=== PATIENT | male | born 1980 | race Caucasian/White ===

== ENCOUNTER → 2018-10-31 10:29 | Outpatient (CLI) | payer BC, SELFPAY ==
[2018-10-31 10:05] VITALS: BMI 30.2
--- NOTE | 2018-10-31 10:33 | RAD_ITS ---
STUDY: X-RAY - LEFT FOOT CLINICAL: Male, 38 years old. Lateral foot pain. TECHNIQUE: 3 view(s) of the foot. COMPARISON: Prior comparison studies are not available for review at this time. FINDINGS: There is a plantar calcaneal spur. Tarsal bones have a grossly normal appearance. Intertarsal articulations are within normal limits. Normal metatarsi. Normal metatarsophalangeal joint of the great toe. Normal tibial and fibular sesamoid bones. Normal interphalangeal joint of the great toe. Normal phalanges of the great toe. Normal second through fifth metatarsophalangeal joints. Normal interphalangeal joints and phalanges of the lesser toes. There is soft tissue swelling. RAD/Foot min 3 Views IMPRESSION: 1. Calcaneal spur. 2. Soft tissue swelling. Electronically Signed: Leilani Vance MD at 11:06 EST , Service support ,
== END ==
PROVIDERS: Family Provider Family Medicine; PCP Family Medicine; Referring Provider Physician Assistant Surgical; Visit Provider Physician Assistant Surgical
DX: S96.912A Strain of unspecified muscle and tendon at ankle and foot level, left foot, initial encounter (principal); M77.32 Calcaneal spur, left foot
CPT/HCPCS: 73630

== ENCOUNTER 2020-05-23 21:06 | Emergency (ER) | payer BC, SELFPAY ==
[2019-09-26 12:43] VITALS: BMI 30.2
[2020-05-23 21:10] VITALS: BP 142/87; PULSE 100; RESP 24; TEMP 37.5; O2SAT 95; BMI 36.2
--- NOTE | 2020-05-23 21:37 | RAD_ITS ---
STUDY: X-RAY CHEST REASON FOR EXAM: Male, 39 years old. Cough, shortness of breath and fever X1 week. TECHNIQUE: Single AP portable view of the chest. COMPARISON: None. FINDINGS: Mild irregular consolidation is present in the left lower lobe. The interstitium is thickened in the bilateral perihilar regions and the mid to lower lung paez. There is no demonstrated pleural abnormality. Normal size heart. Normal mediastinum and maggy. Normal visualized pulmonary arteries. Normal visualized aortic arch and descending thoracic aorta. Normal visualized thoracic spine. Normal visualized ribs, clavicles, and shoulders. There is no demonstrated abnormality of the visualized soft tissue structures of the upper abdomen. RAD/Chest 1 View (Portable) IMPRESSION: 1. Mild irregular consolidation is present in the left lower lobe. 2. The interstitium is thickened in the bilateral perihilar regions and the mid to lower lung paez Electronically Signed: Golden Lerma MD at 22:40 EDT , Service support ,
--- NOTE | 2020-05-23 21:37 | EKG12_ITS ---
Test Reason : CP Blood Pressure : / mmHG Vent. Rate : 101 BPM Atrial Rate : 101 BPM P-R Int : 150 ms QRS Dur : 074 ms QT Int : 326 ms P-R-T Axes : 022 -07 -03 degrees QTc Int : 422 ms Sinus tachycardia Moderate voltage criteria for LVH, may be normal variant Borderline ECG Confirmed by DEON MCDONALD ([id number]), assignment editor MARISSA CLINTON ([id number]) on 05/27/2020 11:45:29 AM Referred By: Confirmed By:DEON MCDONALD
--- NOTE | 2020-05-23 22:18 | ED.VISSUMM ---
- ER Visit Summary Date of Service: 05/23/20 Chief Complaint: Shortness of breath, cough History of Present Illness: The patient is a 39 M presenting with shortness of breath, cough. This started one week ago. His tested positive for COVID 1 week ago. He developed symptoms the same day she was tested, 1-week ago. He has had fever, chills. He has had mild rhinorrhea. He has shortness of breath and productive cough. He has had mild diarrhea. He has body aches and headache. He has a change in his sense of taste. Physical Examination: Vitals are stable. Temperature 99.5. Alert no acute distress. HEENT exam is unremarkable. Neck is supple. No meningismus Lungs are clear and equal bilaterally. Heart is regular rate and rhythm. Abdomen is soft nontender nondistended. No guarding or rebound Extremities are unremarkable. Skin is warm and dry. No rash No focal neurologic deficit. Remainder of exam is unremarkable. Emergency Department Course and Treatment: Patient was given IV fluids. EKG is sinus tachycardia rate of 101. COVID test was sent. Labs are pending at this time and will be checked out to the oncoming physician. Disposition: pending Impression: Viral illness This note was generated with [employer] dictation software. It may contain incorrect words, spelling, and punctuation that were not noted in review of the chart prior to signing ED Disposition - Plan for ED Patient: Referrals: Barrington Cordova MD [Primary Care Provider] -
[2020-05-23 22:30] VITALS: O2SAT 95
[2020-05-23] MEDS: 0.9% Normal Saline 1,000 ML 1000 ML IV (22:30)
[2020-05-23 22:33] LABS: Absolute Lymphocyte Count 0.62 X10^3/uL (0.83-4.51); Basophil# 0.01 X10^3/uL; Basophil% 0.3 % (0-1); Hematocrit 44.3 % (40-54); Hemoglobin 14.9 g/dL (13.0-16.5); Lymphocyte # 0.62 X10^3/ul (4.0); Lymphocyte % 21.4 % (19-41); Mean Corp Hgb Conc 33.6 g/dL (32-36); Mean Corpuscular Hgb 28.9 pg (27.0-32.0); Mean Corpuscular Volume 85.9 fL (80-94); Monocyte% 10.3 % (0-10); NRBC Flagged by Analyzer 0 % (0-5); Neutrophil # 1.96 X10^3/uL (2.7-7.7); Neutrophil % 67.7 % (47-70); Platelet Count 157 K/mm3 (150-450); RBC Distribution Width CV 12.1 % (11.6-14.6); RBC Distribution Width SD 38.2 fl (35.1-43.9); Red Blood Count 5.16 M/mm3 (4.6-6.2); White Blood Count 2.9 K/mm3 (4.4-11.0)
[2020-05-23 22:50] LABS: Anion Gap 4 (5-15); BUN 20 mg/dL (7-18); BUN/Creat Ratio 17.9 RATIO (10-20); Calcium,Total 8.4 mg/dL (8.5-10.1); Chloride 104 mmol/L (98-107); Creatinine, Serum 1.12 mg/dL (0.70-1.30); EST Glomerular Filtration Rate 77 mL/min (>60); Est Glom Filt Rate - Afr Amer 93 mL/min (>60); Glucose 108 mg/dL (74-106); Potassium 4.2 mmol/L (3.5-5.1); Sodium Level 134 mmol/L (136-145)
[2020-05-23 23:57] VITALS: BP 124/81; PULSE 96; RESP 18; TEMP 37.6; O2SAT 94
--- NOTE | 2020-05-24 00:27 | ED.DEP ---
ED Disposition - Plan for ED Patient: [facility] Diagnosis: COVID-19 Referrals: Barrington Cordova MD [Primary Care Provider] - Additional Instructions: You are diagnosed with COVID. There is a separate instruction sheet due to were given. If you feel worse or you are short of breath or you have any, chest pain or your leg swell please return right away to the emergency department.
[2020-05-24 00:51] VITALS: BP 124/81; PULSE 96; RESP 16; O2SAT 94
== END 2020-05-24 00:58 | disposition short-term general hospital (02) ==
PROVIDERS: Emergency Medicine; Emergency Provider Emergency Medicine; PCP Family Medicine
DX: B34.9 Viral infection, unspecified (principal)
CPT/HCPCS: 71045; 80048; 84484; 85025; 87635; 93005; 94799; 99285; J7030; A4216; U0003

== ENCOUNTER → 2021-02-14 09:42 | Outpatient (CLI) | payer BC, SELFPAY ==
--- NOTE | 2021-02-14 09:52 | ECHOCS_ITS ---
Reason For Study: DYSPNEA Procedure This was a 2D Doppler, Color Flow transthoracic echocardiogram. The study was technically difficult. Contrast injection was performed. Exam performed in department. Left Ventricle Normal LV size. Mild global left ventricular systolic dysfunction. The estimated ejection fraction is 45 %. Transmitral doppler flow suggestive of impaired relaxation of left ventricle. Right Ventricle Normal RV size. Normal systolic function. Atria Normal left atrium. Normal right atrium. No doppler evidence for ASD. Mitral Valve There is no mitral annular calcification. Normal mitral valve. Trivial mitral valve insufficiency. Tricuspid Valve Normal tricuspid valve. Trivial tricuspid valve insufficiency. Right ventricular systolic pressure estimated to be 26 mmHg. Aortic Valve Bicuspid aortic valve. Mild diffuse aortic valve thickening. Mild focal aortic valve calcification. Mild aortic stenosis. Mild-Moderate (1-2+) eccentric aortic valve insufficiency. Pulmonic Valve The pulmonic valve is not well visualized. Great Vessels Mildly dilated aortic root. Pericardium/Pleural No pericardial effusion. Medication 22 gauge I.V. with prn adaptor inserted into right arm. Diluted definity 4ml given slow IV push to enhance endocardial definition. MMode/2D Measurements & Calculations LVIDd: 4.8 cm IVSd: 0.87 cm LVOT diam: 2.4 cm LVIDs: 3.3 cm LVPWd: 0.75 cm RVDd: 2.9 cm FS: 30.0 % LVOT area: 4.6 cm2 Ao root diam: 4.0 cm LAV(MOD-bp): 35.0 ml LVAd ap4: 40.5 cm2 LAV(MOD-bp) Indexed: 16.1 ml/m2 EDV(MOD-sp4): 141.2 ml LAV(MOD-sp2): 40.8 ml EDV(sp4-el): 145.9 ml LAV(MOD-sp4): 29.1 ml LVAs ap4: 23.2 cm2 ESV(MOD-sp4): 57.7 ml ESV(sp4-el): 58.0 ml EF(MOD-sp4): 59.1 % EF(sp4-el): 60.2 % SV(MOD-sp4): 83.5 ml SV(sp4-el): 87.9 ml LA A4 area: 13.2 cm2 LA dimension(2D): 3.5 cm RA A4 area: 10.4 cm2 Time Measurements MV dec time: 0.22 sec Doppler Measurements & Calculations MV E max rudy: 68.4 cm/sec Lat Peak E' Rudy: 10.1 cm/sec Med Peak E' Rudy: 7.0 cm/sec MV A max rudy: 94.4 cm/sec E/E' lat: 6.8 E/E' med: 9.8 MV E/A: 0.72 Ao V2 max: 176.0 cm/sec AI max rudy: 347.8 cm/sec LV V1 max: 73.9 cm/sec Ao max P.4 mmHg AI max P.4 mmHg LV V1 max P.2 mmHg Ao V2 mean: 128.9 cm/sec AI dec slope: 230.7 cm/sec2 LV V1 mean P.3 mmHg Ao mean P.5 mmHg AI P1/2t: 441.7 msec LV V1 mean: 53.5 cm/sec Ao V2 VTI: 34.4 cm LV V1 VTI: 16.3 cm GINA(I,D): 2.2 cm2 GINA(V,D): 1.9 cm2 SV(LVOT): 74.4 ml PA V2 max: 101.5 cm/sec TR max rudy: 241.8 cm/sec TR max P.4 mmHg ECHO/Echo Complete W/ Contrast Interpretation Summary The study was technically difficult. Contrast injection was performed. Mild global left ventricular systolic dysfunction. The estimated ejection fraction is 45 %. Trivial mitral valve insufficiency. Trivial tricuspid valve insufficiency. Bicuspid aortic valve. Mild aortic stenosis. Mild-Moderate (1-2+) eccentric aortic valve insufficiency. Mildly dilated aortic root. Right ventricular systolic pressure estimated to be 26 mmHg. Transmitral doppler flow suggestive of impaired relaxation of left ventricle Ordering Physician: Barrington Cordova Referring Physician: Barrington Cordova Performed By: Erum Correia RDCS
== END ==
PROVIDERS: PCP Family Medicine; Referring Provider Family Medicine; Visit Provider Family Medicine
DX: R06.00 Dyspnea, unspecified (principal)
CPT/HCPCS: 93306; Q9957; A4216; C8929

== ENCOUNTER → 2021-04-02 13:53 | Outpatient (CLI) | payer BC, SELFPAY ==
[2021-04-02 12:57] VITALS: BMI 37.2
--- NOTE | 2021-04-02 14:05 | RAD_ITS ---
STUDY: X-RAY CHEST REASON FOR EXAM: Male, 40 years old. Cmp heart catheterization pending TECHNIQUE: Frontal and lateral views of the chest COMPARISON: 23 May 2020 FINDINGS: The lungs are clear and expanded. There is no demonstrated pleural abnormality. Normal size heart. Normal mediastinum and maggy. Normal visualized pulmonary arteries. Normal visualized aortic arch and descending thoracic aorta. Normal visualized thoracic spine. Normal visualized ribs, clavicles, and shoulders. There is no demonstrated abnormality of the visualized soft tissue structures of the upper abdomen. RAD/Chest PA and Lateral IMPRESSION: Normal x-ray examination of the chest. Electronically Signed: Nikkie Jamison MD at 19:32 EDT Tel , Service support ,
[2021-04-02 14:56] LABS: Absolute Lymphocyte Count 2.47 X10^3/uL (0.83-4.51); Absolute Neutrophil Count 4.2 X10^3/uL (2.0-7.7); Basophil# 0.03 X10^3/uL; Basophil% 0.4 % (0-1); Eosinophils% 2.6 % (0-5); Hematocrit 46.1 % (40-54); Hemoglobin 15.3 g/dL (13.0-16.5); Lymphocyte # 2.47 X10^3/ul (0.83-4.51); Lymphocyte % 32.1 % (19-41); Mean Corp Hgb Conc 33.2 g/dL (32-36); Mean Corpuscular Hgb 28.4 pg (27.0-32.0); Mean Corpuscular Volume 85.7 fL (80-94); Mean Platelet Vol. 9.9 fl (6.2-12.0); Monocyte# 0.75 X10^3/uL; Monocyte% 9.7 % (0-10); NRBC Flagged by Analyzer 0 % (0-5); Neutrophil # 4.24 X10^3/uL (2.7-7.7); Neutrophil % 55.1 % (47-70); Platelet Count 300 K/mm3 (150-450); RBC Distribution Width CV 12.7 % (11.6-14.6); RBC Distribution Width SD 39.2 fl (35.1-43.9); Red Blood Count 5.38 M/mm3 (4.6-6.2); White Blood Count 7.7 K/mm3 (4.4-11.0)
[2021-04-02 15:31] LABS: Anion Gap 4 (5-15); BUN 18 mg/dL (7-18); BUN/Creat Ratio 13.6 RATIO (10-20); Calcium,Total 9.4 mg/dL (8.5-10.1); Chloride 107 mmol/L (98-107); Creatinine, Serum 1.32 mg/dL (0.70-1.30); EST Glomerular Filtration Rate 63 mL/min (>60); Est Glom Filt Rate - Afr Amer 76 mL/min (>60); Glucose 96 mg/dL (74-106); Potassium 4.1 mmol/L (3.5-5.1); Sodium Level 141 mmol/L (136-145)
== END ==
PROVIDERS: PCP Family Medicine; Referring Provider Internal Medicine Cardiovascular Disease; Visit Provider Internal Medicine Cardiovascular Disease
DX: Q23.1 Congenital insufficiency of aortic valve (principal); I42.9 Cardiomyopathy, unspecified; R06.00 Dyspnea, unspecified
CPT/HCPCS: 36415; 71046; 80048; 85025

== ENCOUNTER 2021-04-14 07:27 | Day surgery (SDC) | payer BC, SELFPAY ==
[2021-04-02 12:57] VITALS: BMI 37.2
[2021-04-11 09:00] VITALS: BMI 37.2
--- NOTE | 2021-04-14 09:49 | CL.D_ITS ---
Patient Name: ALEX STEIN Study Date: 04/14/2021 Performing: Mushtaq Marin MD Ht: 69 inches 175 cm : 1980 Wt: 251.7 lbs 114 kg Age: 40 Gender: male BSA: 2.27 PROCEDURE(S) PERFORMED [id number]/LV CLINICAL PROFILE AND INDICATIONS Indications: Valvular Disease Heart Failure: None Stress/Imaging Stress/Image Study Performed: No CAD Presentations: Symptom unlikely to be ischemic. CONCLUSIONS Mild cardiomyopathy present, normal coronary arteries, bicuspid aortic valve Dilated aortic root RECOMMENDATIONS Medical therapy for now, CT scan of the aortic root, referral for evaluation for possible bicuspid ao rtic valve repair DESCRIPTION OF PROCEDURE The patient arrived to the procedure lab. The risks and benefits of the procedure as well as a full d escription of our services here and current unavailability of surgical backup were fully explained to the patient and/or their significant other prior to the catheterization. The Timeout was completed, verifying the correct patient and procedure. The patient's procedural site was prepped and draped in the usual fashion. Local anesthetic was given subcutaneously to right radial region with Lidocaine 2% . Using a modified Seldinger technique, arterial access was obtained via the right radial artery, a 6 Fr sheath was inserted. Left Coronary Artery selective angiography was performed in multiple views u sing a 5 Fr. JL3.5 catheter. Right Coronary Artery selective angiography was then performed in multip le views using a 5 Fr. JR 5 catheter. Left Ventriculography was performed in DIXON projection using a 5 Fr. Pigtail catheter. LV to AO pullback pressures were then recorded.The arterial sheath was pulled and a TR Band was applied for hemostasis, sheath flushed prior to removal, 10cc air insert ed. CORONARY ANGIOGRAPHY DOMINANCE: Right Dominant LEFT HEART ASSESSMENT Left Ventricular Ejection Fraction: by LV Gram 45 % Global Hypokinesis - Mild Cardiomyopathy: Non-ischemic LEFT MAIN: Angiographically normal LEFT ANTERIOR DESCENDING ARTERY: Angiographically normal CIRCUMFLEX ARTERY: Angiographically normal RIGHT CORONARY ARTERY: No significant disease noted VALVE FINDINGS: Bicuspid Aortic Valve AORTIC ROOT: Dilated COMPLICATIONS No Complications PROCEDURE MEDICATIONS Fentanyl 50 mcg IV Versed 1 mg IV Oxygen: 2 L/min via nasal cannula Heparin given IA 04/14/2021 09:17:39 Verapamil 2.5mg, Ntg 100mcgs, 3000 units of Heparin given IA 04/14/2021 09:17:39 SUMMARY OF HEMODYNAMIC DATA Time AIR REST AO 106/78 (91) SA 09:20:47 LV 106/19, 29 09:37:59 LV 110/19, 26 09:38:05 LV 109/22, 29 09:39:02 LV 104/27, 34 09:39:08 LVp 109/21, 31 09:39:14 AOp 113/84 (98) 09:39:19 Signed By Mushtaq Marin MD On 04/14/2021 09:48:36 Mushtaq Marin MD
--- NOTE | 2021-04-14 10:45 | CT_ITS ---
STUDY: CTA CHEST REASON FOR EXAM: Male, 40 years old. Dilated aortic root. RADIATION DOSAGE (If Supplied By Facility): CTDIvol = ( 17.47 ) mGy, DLP = ( 792.88 ) mGycm TECHNIQUE: The examination was performed with the intravenous administration of IV 100mL Isovue-370. Post-processing of the angiographic images was performed, with multiplanar reformation and 3D reconstruction. Individualized dose optimization techniques were used for this CT. COMPARISON: None. FINDINGS: Normal enhancement of the main pulmonary artery and right and left pulmonary arteries. Normal enhancement of the bilateral peripheral pulmonary arteries. There is no demonstrated pulmonary embolism. There is aneurysmal dilatation of the ascending aorta. The transverse diameter of the ascending aorta measures 45.7 mm''s. There is no demonstrated aortic dissection. Normal heart and pericardium. There are visualized mediastinal lymph nodes, which are within normal size limits, and with normal morphology. Normal hilar regions. Normal visualized trachea and bronchi. The lungs are well expanded. Normal pulmonary parenchyma. Normal pleura. Normal chest wall structures. There are degenerative changes of thoracic spine. Fatty infiltration of the liver. CT/CTA Chest W/WO Contrast IMPRESSION: There is dilatation of the aortic root with a transverse dimension of 45.7 mm. Electronically Signed: Alirio Elise MD at 11:02 EDT , Service support ,
== END 2021-04-14 12:05 | disposition home or self-care (01) ==
PROVIDERS: PCP Family Medicine; Referring Provider Internal Medicine Cardiovascular Disease; Visit Provider Internal Medicine Cardiovascular Disease
DX: I42.9 Cardiomyopathy, unspecified (principal); I77.810 Thoracic aortic ectasia; I35.2 Nonrheumatic aortic (valve) stenosis with insufficiency; Z79.82 Long term (current) use of aspirin; Z68.37 Body mass index [BMI] 37.0-37.9, adult; Z79.899 Other long term (current) drug therapy; Z86.16 Personal history of COVID-19
CPT/HCPCS: 71275; 93458; 99152; 99153; J7040; Q9967; C1769; C1894

== ENCOUNTER 2021-10-24 17:19 | Emergency (ER) | payer BC, SELFPAY ==
[2021-10-24 17:19] VITALS: BP 150/95; PULSE 97; RESP 16; TEMP 37.1; O2SAT 97; BMI 35.4
--- NOTE | 2021-10-24 17:59 | EDS_ITS ---
HPI History of Present Illness Chief Complaint: Dental Informant: patient and spouse/S.O. Onset/Context/Timing Onset: Days (3) Context: Gradual Onset Timing: Continuous Quality: throbbing/aching Location: right maxillary bicuspid Current Severity: Severe Maximum Severity: Severe Worsened by: chewing Relieved by: - (nothing) Narrative Narrative: Several days worsening dental pain, tooth #13 as the patient already saw his dentist yesterday because of this, was prescribed clindamycin, has had 2 days worth, 6 doses, but swelling/pain worsening despite this. No fevers or discharge. Swelling left face. No nasal discharge or vision changes. [facility] Medical History Bicuspid aortic valve COVID-19 virus detected (05/2020) Dilated aortic root Hordeolum externum left upper eyelid Non-ischemic cardiomyopathy Nonrheumatic aortic (valve) stenosis with insufficiency Home Medications aspirin 81 mg tablet,delayed release 81 mg PO QDAY #90 tab 04/02/21 [Rx Last Taken Unknown] furosemide 20 mg tablet 20 mg PO DAILY #90 tab 04/02/21 [Rx Last Taken Unknown] lisinopril 2.5 mg tablet 2.5 mg PO DAILY #30 tab 07/11/21 [Rx Last Taken Unknown] carvedilol 6.25 mg tablet 6.25 mg PO BID #180 tab 09/02/21 [Rx Last Taken Unknown] hydrocodone-acetaminophen 1 tab PO Q4H PRN 3 Days #18 tablet 10/24/21 [Rx Last Taken Unknown] Allergy/AdvReac Type Severity Reaction Status Date / Time Penicillins Allergy Mild unknown Verified 10/24/21 17:23 Family History Mother Diabetes Father Diabetes CAD (coronary artery disease), Onset Age: 67 CABG Surgical History History of left heart catheterization (04/14/21) History of removal of cyst Social History Smoking Status: Never smoker alcohol intake: current alcohol intake frequency: holidays/special occasions only ROS ROS ED Constitutional Constitutional ED: Denies chills or fever(s) Eyes Eyes: Denies change in vision or double vision ENT ENT ED: Reports as per HPI and dental pain; Denies loss taste/smell, sinus pain or throat swelling Cardiovascular Cardiovascular: Denies chest pain or palpitations Respiratory/Chest Respiratory/Chest: Denies cough or dyspnea Integumentary Denies abscess or rash Neurologic Neurologic: Denies headache(s), paresthesias or weakness EXAM Physical Exam Const Vital Signs: 10/24/21 17:19 Temperature 98.8 F Temperature Source Temporal Pulse Rate 97 Respiratory Rate 16 Blood Pressure 150/95 H Blood Pressure Mean 113 Pulse Ox 97 Oxygen Delivery Method Room Air Positive well nourished and well developed General Appearance ED: well developed and NAD HEENT HEENT Narrative: Tender tooth #13, with associated supraperiosteal abscess that is pointing in the oral mucosa above the gingiva. Also swelling due to dental abscess in the left maxillary face toward the eye but not including it. Normal periorbital area. No nasal discharge, no external facial erythema. Throat: posterior oropharynx normal Eyes PERRL and EOMs intact bilaterally Neck no lymphadenopathy and supple Resp normal respiratory effort Neuro oriented x3 and CN's II-XII intact bilaterally Sensorium / Orientation: alert Gait (Neuro): normal gait Psych mental status grossly normal and thought process normal Skin no rashes or lesions noted and no wounds MDM MDM MDM Narrative Medical decision making narrative: See the procedure note, we were able to get a small amount of purulent material out. He was given Decadron 12 mg orally, in addition to a [place] and a short prescription for some pain medication, continue clindamycin follow-up with dentist/OMFS. Procedures Other Procedures Procedure(s): Dental abscess aspiration: Topical treatment with topical benzocaine 20% spray, followed by intraoral aspiration with an 18-gauge needle, yielded only a scant amount of blood/purulent material, followed by foul taste in the patient's mouth and saliva, so he was able to manually milk/express some more out and irrigate with ice water. No complications, tolerated well. Discharge Plan Triage Chief Complaint: Dental ED Provider: Lavon Paige Dx/Rx/DC Orders Clinical Impression: Dental abscess Instructions: ED Dental Abscess Prescriptions: New hydrocodone-acetaminophen [hydrocodone-acetaminophen] 1 TABLET tablet 1 tab PO Q4H PRN (Reason: Pain) 3 Days Qty: 18 RF: 0 No Action aspirin [Adult Low Dose Aspirin] 81 mg tablet,delayed release (DR/EC) 81 mg PO QDAY Qty: 90 RF: 3 furosemide [Lasix] 20 mg tablet 20 mg PO DAILY Qty: 90 RF: 3 lisinopril 2.5 mg tablet 2.5 mg PO DAILY Qty: 30 RF: 12 carvedilol 6.25 mg tablet 6.25 mg PO BID Qty: 180 RF: 3 Primary Care Provider: Barrington Cordova Referrals: Barrington Cordova MD [Primary Care Provider] - Dentist,Your [STAFF PHYSICIAN] - As soon as possible (After the weekend) Disposition Disposition: Home, Self Care
[2021-10-24] MEDS: HYDROcodone Bitartrate/Apap 5/325 Tablet PO (18:48)
[2021-10-24] MEDS: dexAMETHasone 4 MG Tablet 12 MG PO (18:48)
== END 2021-10-24 18:52 | disposition home or self-care (01) ==
PROVIDERS: Emergency Provider Emergency Medicine; PCP Family Medicine
DX: K04.7 Periapical abscess without sinus (principal); I42.8 Other cardiomyopathies; Z86.16 Personal history of COVID-19; Z79.82 Long term (current) use of aspirin; Z79.899 Other long term (current) drug therapy
CPT/HCPCS: 99283

== ENCOUNTER → 2022-03-19 | Outpatient (CLI) | payer BC, SELFPAY ==
--- NOTE | 2022-03-19 16:06 | CT_ITS ---
: CTA Chest WO/W Contrast Injection 03/19/2022 6:08 PM REASON FOR EXAM: Male, 41 years old. dilated aortic root TECHNIQUE: The examination was performed with the intravenous administration of IV 100mL Isovue-370 contrast material. Post-processing of the angiographic images was performed, with axial imaging and 3D reconstruction. MIPS images were obtained. Radiation: CTDIvol = [18.6] mGy, DLP = [523.63] mGy-cm Individualized dose optimization techniques were used for this CT. Comparison: Apr 14 2021 10:44am FINDINGS: There is no pneumothorax. There is no demonstrated pleural abnormality. Normal heart and pericardium with no evidence for calcifications of the coronary arteries. Normal mediastinum. Normal hilar regions. Normal pulmonary arteries. Normal aorta arch and descending thoracic aorta. There is aneurysmal dilatation of the ascending aorta. The transverse diameter of the ascending aorta measures (in mm): 47 x 48 mm. There are multi-level degenerative changes of the thoracic spine. Fatty liver. CT/CTA Chest W/WO Contrast IMPRESSION: No demonstrated pulmonary embolism or arterial dissection. There is stable aneurysmal dilatation of the ascending aorta. Fatty liver. Electronically Signed: Gaston Snell MD at 18:12 EDT ,
== END | disposition home or self-care (01) ==
LOC: CT 16:05
PROVIDERS: PCP Family Medicine; Referring Provider Internal Medicine Cardiovascular Disease; Visit Provider Internal Medicine Cardiovascular Disease
DX: I77.810 Thoracic aortic ectasia (principal)
CPT/HCPCS: 71275; Q9967

== ENCOUNTER → 2022-03-31 | Outpatient (CLI) | payer BC, SELFPAY ==
--- NOTE | 2022-03-31 08:48 | ECHOCS_ITS ---
Version 3 Reason For Study: BICUSPID AO Procedure This was a 2D Doppler, Color Flow transthoracic echocardiogram. The study was technically difficult. Exam performed in department. Left Ventricle Normal LV size. Left ventricular systolic function is normal. The estimated ejection fraction is 60 %. No regional wall motion abnormalities noted. Right Ventricle Normal RV size. Normal systolic function. Atria Normal left atrium. Normal right atrium. Mitral Valve Normal mitral valve. Tricuspid Valve Normal tricuspid valve. Mild tricuspid valve insufficiency. Aortic Valve Bicuspid aortic valve. Mild (1+) eccentric aortic valve insufficiency. Pulmonic Valve The pulmonic valve is not well visualized. Great Vessels Mild to moderately dilated aortic root. The pulmonary artery is normal size. Normal inferior vena cava. Pericardium/Pleural No pericardial effusion. Medication 22 gauge I.V. with prn adaptor inserted into right arm. Diluted definity 1ml given slow IV push to enhance endocardial definition. MMode/2D Measurements & Calculations LVIDd: 5.6 cm IVSd: 0.87 cm LVOT diam: 2.5 cm LVIDs: 2.8 cm LVPWd: 0.79 cm FS: 50.0 % LVOT area: 5.1 cm2 Ao root diam: 4.2 cm LVAd ap4: 48.7 cm2 SV(MOD-sp4): 118.4 ml LVLd ap4: 10.4 cm EDV(MOD-sp4): 185.1 ml EDV(sp4-el): 193.1 ml LVAs ap4: 26.7 cm2 LVLs ap4: 8.6 cm ESV(MOD-sp4): 66.6 ml ESV(sp4-el): 70.0 ml EF(MOD-sp4): 64.0 % EF(sp4-el): 63.8 % SV(sp4-el): 123.2 ml LA dimension(2D): 3.9 cm Doppler Measurements & Calculations MV E max rudy: 81.7 cm/sec Lat Peak E' Rudy: 11.4 cm/sec Med Peak E' Rudy: 11.7 cm/sec MV A max rudy: 95.9 cm/sec E/E' lat: 7.2 E/E' med: 7.0 MV E/A: 0.85 Ao V2 max: 208.7 cm/sec AI max rudy: 404.1 cm/sec LV V1 max: 82.9 cm/sec Ao max P.5 mmHg AI max P.3 mmHg LV V1 max P.8 mmHg Ao V2 mean: 151.6 cm/sec AI dec slope: 311.7 cm/sec2 LV V1 mean P.8 mmHg Ao mean P.0 mmHg AI P1/2t: 379.8 msec LV V1 mean: 64.1 cm/sec Ao V2 VTI: 41.9 cm LV V1 VTI: 17.0 cm GINA(I,D): 2.1 cm2 GINA(V,D): 2.0 cm2 SV(LVOT): 86.2 ml PA V2 max: 99.2 cm/sec TR max rudy: 240.2 cm/sec TR max P.1 mmHg ECHO/Echo Complete W/ Contrast Interpretation Summary Normal LV size. Left ventricular systolic function is normal. The estimated ejection fraction is 60 %. Bicuspid aortic valve. Mild to moderately dilated aortic root. Mild (1+) eccentric aortic valve insufficiency. Mild tricuspid valve insufficiency. Contrast injection was performed. Compared to previous study, the left ventricu lar systolic function has improved.. Ordering Physician: Mushtaq Marin Referring Physician: Barrington Cordova Performed By: Shirley Bermeo RCS
== END | disposition home or self-care (01) ==
LOC: CVS 08:47
PROVIDERS: PCP Family Medicine; Visit Provider Internal Medicine Cardiovascular Disease
DX: Q23.1 Congenital insufficiency of aortic valve (principal)
CPT/HCPCS: 93306; Q9957; A4216; C8929

== ENCOUNTER → 2023-03-11 | Outpatient (CLI) | payer BC, SELFPAY ==
--- NOTE | 2023-03-11 06:48 | CT_ITS ---
STUDY: CTA CHEST REASON FOR EXAM: Male, 42 years old. Dilated Aortic Root -- Tania RADIATION DOSAGE (If Supplied By Facility): CTDIvol = ( 17.35 ) mGy, DLP = ( 717.47 ) mGycm TECHNIQUE: The examination was performed with the intravenous administration of IV 100mL Isovue-370. Post-processing of the angiographic images was performed, with multiplanar reformation and 3D reconstruction. Individualized dose optimization techniques were used for this CT. COMPARISON: Comparison is made with prior study of March 19, 2022. FINDINGS: Stable small benign-appearing bilateral axillary lymph nodes. Normal enhancement of the main pulmonary artery and right and left pulmonary arteries. Normal enhancement of the bilateral peripheral pulmonary arteries. There is no demonstrated pulmonary embolism. There is aneurysmal dilatation of the ascending aorta. The transverse diameter of the ascending aorta measures 47 mm''s. There is no demonstrated aortic dissection. Normal heart and pericardium. There are visualized mediastinal lymph nodes, which are within normal size limits, and with normal morphology. Normal hilar regions. Normal visualized trachea and bronchi. The lungs are well expanded. Normal pulmonary parenchyma. Normal pleura. Normal chest wall structures. There are degenerative changes of thoracic spine. Diffuse fatty infiltration of the liver. CT/CTA Chest W/WO Contrast IMPRESSION: Stable dilatation of the root of the ascending thoracic aorta. Electronically Signed: Alirio Elise MD at 10:28 EDT ,
== END | disposition home or self-care (01) ==
LOC: CT 06:45
PROVIDERS: PCP Family Medicine; Referring Provider Nurse Practitioner Gerontology; Visit Provider Nurse Practitioner Gerontology
DX: I77.810 Thoracic aortic ectasia (principal)
CPT/HCPCS: 71275; Q9967

== ENCOUNTER → 2023-03-18 | Outpatient (CLI) | payer BC, SELFPAY ==
[2023-03-18 15:53] LABS: Absolute Lymphocyte Count 2.33 X10^3/uL (0.83-4.51); Absolute Neutrophil Count 5.6 X10^3/uL (2.0-7.7); Basophil# 0.05 X10^3/uL; Basophil% 0.6 % (0-1); Eosinophils% 2.3 % (0-5); Hematocrit 47.6 % (40-54); Hemoglobin 15.8 g/dL (13.0-16.5); Lymphocyte # 2.33 X10^3/ul (0.83-4.51); Lymphocyte % 26.2 % (19-41); Mean Corp Hgb Conc 33.2 g/dL (32-36); Mean Corpuscular Hgb 29.2 pg (27.0-32.0); Mean Corpuscular Volume 87.8 fL (80-94); Monocyte# 0.67 X10^3/uL; Monocyte% 7.5 % (0-10); NRBC Flagged by Analyzer 0 % (0-5); Neutrophil % 63.1 % (47-70); Platelet Count 297 K/mm3 (150-450); RBC Distribution Width CV 12.6 % (11.6-14.6); RBC Distribution Width SD 40.6 fl (35.1-43.9); Red Blood Count 5.42 M/mm3 (4.6-6.2); White Blood Count 8.9 K/mm3 (4.4-11.0)
[2023-03-18 16:35] LABS: Vitamin D,25 Hydroxy 26.9 ng/mL
[2023-03-18 16:54] LABS: Anion Gap 6 (5-15); BUN 22 mg/dL (7-18); BUN/Creat Ratio 17.2 RATIO (10-20); Calcium,Total 9.2 mg/dL (8.5-10.1); Chloride 104 mmol/L (98-107); Creatinine, Serum 1.28 mg/dL (0.70-1.30); EST Glomerular Filtration Rate 65 mL/min (>60); Est Glom Filt Rate - Afr Amer 78 mL/min (>60); Free T3 3.2 pg/mL (2.18-3.98); Glucose 106 mg/dL (74-106); Potassium 3.9 mmol/L (3.5-5.1); Sodium Level 139 mmol/L (136-145); T4 Free Direct 1.06 ng/dL (0.76-1.46); Thyroid Stim Hormone (TSH) 1.76 uIU/mL (0.358-3.74)
== END | disposition home or self-care (01) ==
LOC: LAB 15:12
PROVIDERS: PCP Family Medicine; Referring Provider Nurse Practitioner Gerontology; Visit Provider Nurse Practitioner Gerontology
DX: R53.83 Other fatigue (principal)
CPT/HCPCS: 36415; 80048; 82306; 84439; 84443; 84481; 85025

== ENCOUNTER → 2023-11-11 | Outpatient (CLI) | payer BC, SELFPAY ==
--- NOTE | 2023-11-11 08:54 | ECHOCS_ITS ---
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 The study was technically difficult. Due to body habitus. Contrast injection was performed. Exam performed in department. Left Ventricle Normal LV size. Left ventricular systolic function is normal. The estimated ejection fraction is 55 %. No regional wall motion abnormalities noted. Right Ventricle Normal RV size. Normal systolic function. Atria Normal left atrium. Normal right atrium. Mitral Valve Normal mitral valve. Tricuspid Valve Normal tricuspid valve. Trivial tricuspid valve insufficiency. Aortic Valve Bicuspid aortic valve. Peak aortic valve gradient 13 mmHg. Mean aortic valve gradient 8 mmHg. Mild (1+) aortic valve insufficiency. Pulmonic Valve Normal pulmonic valve. Great Vessels Moderately dilated aortic root. The pulmonary artery is normal size. Inferior vena cava collapse with respiration. Pericardium/Pleural No pericardial effusion. Medication 22 gauge I.V. with prn adaptor inserted into right arm. Diluted definity 3.0ml given slow IV push to enhance endocardial definition. MMode/2D Measurements & Calculations LVIDd: 4.7 cm IVSd: 0.97 cm LVOT diam: 2.8 cm LVIDs: 3.4 cm LVPWd: 0.98 cm RVDd: 3.1 cm FS: 26.8 % LVOT area: 6.0 cm2 Ao root diam: 4.2 cm LAV(MOD-bp): 39.0 ml LVAd ap4: 29.1 cm2 LAV(MOD-bp) Indexed: 16.9 ml/m2 LVLd ap4: 7.6 cm LAV(MOD-sp2): 35.4 ml EDV(MOD-sp4): 90.8 ml LAV(MOD-sp4): 39.4 ml EDV(sp4-el): 94.3 ml LVAs ap4: 19.7 cm2 LVLs ap4: 7.4 cm ESV(MOD-sp4): 44.6 ml ESV(sp4-el): 44.2 ml EF(MOD-sp4): 50.8 % EF(sp4-el): 53.2 % SV(MOD-sp4): 46.1 ml SV(sp4-el): 50.1 ml LA A4 area: 14.9 cm2 LA dimension(2D): 3.9 cm RA A4 area: 14.2 cm2 TAPSE: 1.9 cm Time Measurements MV dec time: 0.30 sec Doppler Measurements & Calculations MV E max rudy: 73.7 cm/sec Lat Peak E' Rudy: 11.8 cm/sec Med Peak E' Rudy: 8.6 cm/sec MV A max rudy: 74.5 cm/sec E/E' lat: 6.2 E/E' med: 8.5 MV E/A: 0.99 MV V2 max: 104.9 cm/sec MV dec slope: 246.0 cm/sec2 Ao V2 max: 182.4 cm/sec MV max P.4 mmHg Ao max P.3 mmHg MV V2 mean: 62.4 cm/sec Ao V2 mean: 130.4 cm/sec MV mean P.8 mmHg Ao mean P.8 mmHg MV V2 VTI: 28.5 cm Ao V2 VTI: 40.5 cm MVA(VTI): 4.1 cm2 AV (velocity ratio): 0.49 GINA(I,D): 2.9 cm2 GINA(V,D): 2.9 cm2 AI max rudy: 190.8 cm/sec LV V1 max: 90.2 cm/sec SV(LVOT): 118.0 ml AI max P.6 mmHg LV V1 max P.3 mmHg LV V1 mean P.0 mmHg AI dec slope: 127.5 cm/sec2 LV V1 mean: 67.4 cm/sec AI P1/2t: 438.3 msec LV V1 VTI: 19.8 cm PA V2 max: 92.5 cm/sec TR max rudy: 170.9 cm/sec PA V2 mean: 70.1 cm/sec TR max P.7 mmHg ECHO/Echo Complete W/ Contrast Interpretation Summary Normal LV size. Left ventricular systolic function is normal. The estimated ejection fraction is 55 %. Bicuspid aortic valve. Moderately dilated aortic root. Contrast injection was performed. Ordering Physician: Mushtaq Marin Referring Physician: Barrington Cordova Performed By: Areli Brumfield RDCS, RVT
== END | disposition home or self-care (01) ==
PROVIDERS: PCP Family Medicine; Referring Provider Internal Medicine Cardiovascular Disease; Visit Provider Internal Medicine Cardiovascular Disease
DX: Q23.1 Congenital insufficiency of aortic valve (principal)
CPT/HCPCS: 93306; Q9957; A4216; C8929

== ENCOUNTER → 2024-06-21 | Outpatient (CLI) | payer BC, SELFPAY ==
[2024-06-21 12:25] LABS: Absolute Lymphocyte Count 2.05 X10^3/uL (0.83-4.51); Absolute Neutrophil Count 3.7 X10^3/uL (2.0-7.7); Basophil# 0.06 X10^3/uL; Basophil% 0.9 % (0-1); Eosinophils% 4.3 % (0-5); Hematocrit 46.1 % (40-54); Hemoglobin 15.6 g/dL (13.0-16.5); Lymphocyte # 2.05 X10^3/ul (0.83-4.51); Lymphocyte % 29.7 % (19-41); Mean Corp Hgb Conc 33.8 g/dL (32-36); Mean Corpuscular Hgb 29.3 pg (27.0-32.0); Mean Corpuscular Volume 86.5 fL (80-94); Mean Platelet Vol. 10.3 fl (6.2-12.0); Monocyte# 0.79 X10^3/uL; Monocyte% 11.4 % (0-10); NRBC Flagged by Analyzer 0 % (0-5); Neutrophil % 53.6 % (47-70); Platelet Count 297 K/mm3 (150-450); RBC Distribution Width CV 12.8 % (11.6-14.6); Red Blood Count 5.33 M/mm3 (4.6-6.2); White Blood Count 6.9 K/mm3 (4.4-11.0)
[2024-06-21 12:55] LABS: ALB/GLOB Ratio 0.8 RATIO (0.9-2.4); AST(SGOT) 39 U/L (15-37); Alanine Aminotransfer ALT/SGPT 65 U/L (16-61); Albumin, Serum 3.7 g/dL (3.2-5.0); Alkaline Phosphatase 98 U/L (45-117); Anion Gap 6 (5-15); BUN 16 mg/dL (7-18); BUN/Creat Ratio 14.3 RATIO (10-20); Calcium,Total 9.1 mg/dL (8.5-10.1); Chloride 105 mmol/L (98-107); Cholesterol 250 mg/dL (200); Creatinine, Serum 1.12 mg/dL (0.70-1.30); EST Glomerular Filtration Rate 75 mL/min (>60); Est Glom Filt Rate - Afr Amer 91 mL/min (>60); Globulin 4.4 g/dL (2.2-4.2); Glucose 106 mg/dL (74-106); High Density Lipoprotein 41 mg/dL; Protein, Total 8.1 g/dL (6.4-8.2); Sodium Level 137 mmol/L (136-145); Triglycerides 183 mg/dL; Very Low Density Lipoprotein 37 mg/dL (5-40)
== END | disposition home or self-care (01) ==
LOC: MFPLAB 09:53
PROVIDERS: PCP Family Medicine; Visit Provider Family Medicine
DX: I25.10 Atherosclerotic heart disease of native coronary artery without angina pectoris (principal); Z13.1 Encounter for screening for diabetes mellitus; Z13.220 Encounter for screening for lipoid disorders
CPT/HCPCS: 36415; 80053; 80061; 84443; 85025

== ENCOUNTER 2024-09-12 07:15 | Day surgery (SDC) | payer BC, SELFPAY ==
[2024-09-12] VITALS (8 sets, daily range): BP systolic 92–121; BP diastolic 74–96; PULSE 68–84; RESP 16–18; TEMP 36.6–36.8; O2SAT 90–96; BMI 38.0
--- NOTE | 2024-09-12 07:33 | PRE.ANES_ITS ---
ASA Classification* ASA Classification ASA Classification: 3 Assessment & Plan Anesthesia* Anesthesia Assessment Anesthesia Assessment: Discussed sedation and/or anesthesia options, risks, benefits, and alternatives with patient/parents/legal guardian/POA. Questions invited. The patient/parents/legal guardian/POA seems to understand and agrees to proceed with anesthesia plan. Reviewed the physical assessment, medical history, allergy history and patient home medications list prior to surgery/procedure/anesthetic and documented any changes. Performed airway and anesthesia risk assessments. Anesthesia Type Anesthesia Type: MAC Anesthesia Focused Assessment* Airway Assessment Mouth opens: >3 cm Mallampati Score: II Focused Labs Anesthesia Preop lab: CBC WBC 6.9 K/mm3 (4.4-11.0) 06/21/24 09:53 RBC 5.33 M/mm3 (4.6-6.2) 06/21/24 09:53 Hgb 15.6 g/dL (13.0-16.5) 06/21/24 09:53 Hct 46.1 % (40-54) 06/21/24 09:53 Plt Count 297 K/mm3 (150-450) 06/21/24 09:53 CHEMISTRY Potassium 4.0 mmol/L (3.5-5.1) 06/21/24 09:53 Sodium 137 mmol/L (136-145) 06/21/24 09:53 BUN 16 mg/dL (7-18) 06/21/24 09:53 Creatinine 1.12 mg/dL (0.70-1.30) 06/21/24 09:53 Glucose 106 mg/dL (74-106) 06/21/24 09:53 TSH 2.220 uIU/mL (0.358-3.740) 06/21/24 09:53 COAG Pre-Assessment Diagnosis/Proposed Procedure Planned Operative Procedure(s): CSCOPE Anesthesia History 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 When Was Last Pacemaker Check QUESTION #4 FULL TEXT: You/Your Family Experience fever (hyperthermia) with Anesthesia Last Oral Intake Last Oral intake: Last Oral Intake NPO since Meds taken in AM with sips of water? 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 Female No 09/07/24 09:18 HX of Motion Sickness No 09/07/24 09:18 HX of N/V After Surgery No 09/07/24 09:18 Non-Smoker Yes 09/07/24 09:18 Duration of Surgery greater No 09/07/24 09:18 than 60 minutes Number of Risk Factors 1 09/07/24 09:18 PONV Score Low Risk 09/07/24 09:18 Height & Weight Height & Weight: Anesthesia: Height & Weight Height 5 ft 8.5 in 07/28/24 11:39 Respiratory Assessment Respiratory Assessment - tool polishing machine operator: Respiratory Tract Infection Hx - 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 Has anyone observed you stop No 09/07/24 09:18 breathing during sleep? STOP Results Positive 09/07/24 09:18 QUESTION #5 FULL TEXT : Do you snore loudly (louder than talking or can be heard through closed doors)? 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 Specify any problems Hx of Preganancy in last 3 N/A 09/07/24 09:18 Months Nurse Filling Out Transfusion NBUCHER 09/07/24 09:18 & Questions: Date: 09/07/24 09/07/24 09:18 Time: 09:20 09/07/24 09:18 Patient unable to answer at this time (ie. 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: /Reproductive Hx- tool polishing machine operator Hx Now No 09/07/24 09:18 Gestational Age (in weeks): EDC: Hx Hx Para Hx Section SAB No 09/07/24 09:18 [facility] Medical History Wears glasses Heartburn Gastric reflux Non-smoker Shortness of breath on exertion Leg cramps Hypertension Chest pain History of echocardiogram Cardiology follow-up encounter CAD (coronary artery disease) Non-ischemic cardiomyopathy Dilated aortic root Nonrheumatic aortic (valve) stenosis with insufficiency Bicuspid aortic valve COVID-19 virus detected (05/2020) Hordeolum externum left upper eyelid Home Medications ?Medication ?Instructions ?Recorded ?Last Taken ?Type carvedilol 6.25 mg tablet 6.25 mg PO BID #180 tabs 09/30/23 09/12/24 04:30 Rx lisinopril 2.5 mg tablet 2.5 mg PO DAILY #90 tabs 09/30/23 Unknown Rx furosemide 20 mg tablet (Lasix) 20 mg PO .COMPLEX #90 tabs 05/29/24 Unknown Rx loratadine 10 mg tablet 10 mg PO DAILY 09/07/24 Unknown History (Allerclear) multivitamin (Daily Multi-Vitamin 1 tab PO DAILY 09/07/24 Unknown History tablet) Allergy/AdvReac Type Severity Reaction Status Date / Time Penicillins Allergy Mild Rash Verified 09/12/24 07:31 Family History Mother Diabetes Colon polyps Father Diabetes CAD (coronary artery disease), Onset Age: 67 CABG Surgical History History of excision of pilonidal cyst History of left heart catheterization (04/14/21) History of removal of cyst Social History household members: spouse current occupational status: employed Smoking Status: Never smoker alcohol intake: current alcohol intake frequency: holidays/special occasions only substance use type: does not use Review of Systems (Anesthesia) ROS Narrative System reviewed and no additional complaints, except as documented.
--- NOTE | 2024-09-12 08:15 | H&P.OPEN ---
HPI - General HPI Narrative ALEX STEIN, is a 43 M who presents for screening colonoscopy. Patient has never had a colonoscopy in the past. He denies abdominal pain or blood in the stool. Patient denies family history of colon cancer although his mother did have polyps. [facility] Medical History Wears glasses Heartburn Gastric reflux Non-smoker Shortness of breath on exertion Leg cramps Hypertension Chest pain History of echocardiogram Cardiology follow-up encounter CAD (coronary artery disease) Non-ischemic cardiomyopathy Dilated aortic root Nonrheumatic aortic (valve) stenosis with insufficiency Bicuspid aortic valve COVID-19 virus detected (05/2020) Hordeolum externum left upper eyelid Home Medications ?Medication ?Instructions ?Recorded ?Last Taken ?Type carvedilol 6.25 mg tablet 6.25 mg PO BID #180 tabs 09/30/23 09/12/24 04:30 Rx lisinopril 2.5 mg tablet 2.5 mg PO DAILY #90 tabs 09/30/23 Unknown Rx furosemide 20 mg tablet (Lasix) 20 mg PO .COMPLEX #90 tabs 05/29/24 Unknown Rx loratadine 10 mg tablet 10 mg PO DAILY 09/07/24 Unknown History (Allerclear) multivitamin (Daily Multi-Vitamin 1 tab PO DAILY 09/07/24 Unknown History tablet) Allergy/AdvReac Type Severity Reaction Status Date / Time Penicillins Allergy Mild Rash Verified 09/12/24 07:31 Family History Mother Diabetes Colon polyps Father Diabetes CAD (coronary artery disease), Onset Age: 67 CABG Surgical History History of excision of pilonidal cyst History of left heart catheterization (04/14/21) History of removal of cyst Social History household members: spouse current occupational status: employed Smoking Status: Never smoker alcohol intake: current alcohol intake frequency: holidays/special occasions only substance use type: does not use Past Medical/Surgical History Planned Operation Planned Operative Procedure(s): CSCOPE Previous Hospitalizations/Surgeries HX Hospitalizations: No HX of Surgeries: WISDOM TEETH Any Problems With Anesthesia: No You/Your Family Experience Fever (Hyperthermia) With Anes: No Cholinesterase deficiency: No Cardiovascular Hx Chest Pain within Last 2 months: No Hx of Irregular Heartbeat and/or Afib: No Hx Heart Attack: No Hx Congestive Heart Failure: No Hx Rheumatic Fever: No Hx Hypertension: Yes (CONTROLLED WITH MED) Hx Internal Defibrillator: No Hx Pacemaker: No Hx Cardiac Catheterization: No Hx Cardiac Surgery/Stents/Etc.: No Hx Stress Test: No Hx Pain in Legs when Walking/Leg Cramps: No Respiratory Chronic Cough: No HX of Shortness of Breath: No Hoarseness: No Hx Chronic Obstructive Pulmonary Disease (COPD): No Hx Asthma: No Hx Emphysema: No Hx Sleep Apnea: No (SCHEDULED FOR SLEEP STUDY) CPAP: No BIPAP: No Hx Respiratory Tract Infection/Cold (presently): No Do You Snore Loudly (louder than talking or can be heard): Yes Do You Often Feel Tired/ Fatigued/ Sleepy Dring Daytime?: Yes Has Anyone Observed You Stop Breathing During Sleep?: No Result (for STOP score): Positive Hx Smoking: No Smoking Status: Never smoker Gastrointestinal Controlled With Meds: No Hx Gastrointestinal Disorders: No Hx Gastrointestinal Bleed: No Hx Ulcer: No Hx Unplanned Weight Loss of 20#: No HX Unplanned Weight Gain of 20#: No Neurological Hx Seizures: No HX Syncope/Blackout Spells/Unconsciousness: No Hx Transient Ischemic Attacks (TIA): No Hx Multiple Sclerosis: No Hx Parkinson's Disease: No Hx Head/Neck Injury: No Hx Headaches: No Hx Back Injury/Pain: No Does patient have nerve stimulator: No Blood Disorder Hx Deep Vein Thrombosis: No Hx High Cholesterol: No Hx Hepatitis: No Hx Cirrhosis: No Hx Anemia: No Hx Blood Disorders: No Reproduction : No Genitourinary Hx Renal Disease: No Hx Dialysis: No Musculoskeletal Hx Arthritis: No Hx Rheumatoid Arthritis: No Hx Gout: No Endocrine Hx Diabetes: No Insulin: No Thyroid Disease: No Hx Steroid Therapy: No Psycho/Social Hx Substance Use: No Hx Alcohol Use: Yes Hx Anxiety: No Hx Depression: No Mental Illness: No Hx Dementia: No Miscellaneous Hx Cancer: No Recent Exposure to Contagious Disease: No Hx of C-Diff: No Allergies Penicillins Allergy (Mild, Verified 09/12/24 07:31) Rash Family hx also Vital Signs Vital Signs Vital Signs: 09/12/24 07:32 Temperature 97.8 F Temperature Source Temporal Pulse Rate 84 Respiratory Rate 16 Blood Pressure 121/96 H Blood Pressure Mean 104 Blood Pressure Source Monitor Blood Pressure Position Sitting Blood Pressure Location Right Arm Pulse Ox 96 Oxygen Delivery Method Room Air Weight Weight: 254 lb Body Mass Index (BMI) 38.0 Physical Exam Const alert and oriented x3 HEENT normocephalic Eyes PERRL Resp normal respiratory effort and normal air movement Cardio regular rate and regular rhythm GI soft to palpation, non-tender and non-distended Extremity normal to inspection Assessment & Plan Assessment/Plan (1) Encounter for screening for malignant neoplasm of colon: PLAN: I explained endoscopy in detail to the patient. I explained the risks including but not limited to stroke or heart attack with anesthesia, perforation of the GI tract, bleeding, infection. I explained that any of these could necessitate further emergency surgery. The patient understands and all questions were answered sufficiently. The patient wishes to proceed with procedure. Irving Damon MD Pager: [facility] [address] [place] [address], [address] [place] [address] Office: Surgery Risks - Colonoscopy Risks Include but are not Limited To: Risks include but are not limited to: Bleeding, perforation requiring further surgery, inability to complete colonoscopy requiring barium enema.
--- NOTE | 2024-09-12 08:39 | OP.CCLET_ITS ---
09/12/2024 Ale Peterson Md Re : Colonoscopy procedure for Paulo Rordiguez Dear Nicholas This procedure was performed on Thursday, September 12, 2024. My impressions and recommendations are as follows: Impressions : - The entire examined colon is normal on direct and retroflexion views. - No specimens collected. Recommendations : - Discharge patient to home. - Resume previous diet. - Continue present medications. - Repeat colonoscopy in 10 years for screening purposes. My findings are described in the full procedure note, which is enclosed. If I can be of further assistance, please feel free to contact me at Doctor phone number(s): , Work: . Sincerely, Irving Damon MD 09/12/2024 8:39:02 AM This report has been signed electronically.
--- NOTE | 2024-09-12 08:39 | OP.COLON_ITS ---
Patient Name: Paulo Rodriguez Procedure Date: 09/12/2024 8:18 AM Date of : 1980 Age: 43 Procedure: Colonoscopy Indications: Screening for colorectal malignant neoplasm Providers: Irving Damon MD Referring MD: Ale Peterson Md Medicines: Propofol per Anesthesia Patient Profile: This is a 43 year old male. Refer to note in patient chart for documentation of history and physical. Last Colonoscopy: none. The patient's first colonoscopy is today. Complications: No immediate complications. Procedure: Pre-Anesthesia Assessment: - Prior to the procedure, a History and Physical was performed, and patient medications and allergies were reviewed. The patient's tolerance of previous anesthesia was also reviewed. The risks and benefits of the procedure and the sedation options and risks were discussed with the patient. All questions were answered, and informed consent was obtained. Prior Anticoagulants: The patient has taken no anticoagulant or antiplatelet agents. After reviewing the risks and benefits, the patient was deemed in satisfactory condition to undergo the procedure. After I obtained informed consent, the scope was passed under direct vision. Throughout the procedure, the patient's blood pressure, pulse, and oxygen saturations were monitored continuously. The colonoscope was introduced through the anus and advanced to the cecum, identified by appendiceal orifice and ileocecal valve. The colonoscopy was performed without difficulty. The patient tolerated the procedure well. The quality of the bowel preparation was good. The ileocecal valve, appendiceal orifice, and rectum were photographed. Scope In: 8:24:15 AM Scope Withdrawal Time 0 hours 8 minutes 18 seconds Scope Out: 8:36:38 AM Total Procedure Duration Time 0 hours 12 minutes 23 seconds Findings: The entire examined colon appeared normal on direct and retroflexion views. Impression: - The entire examined colon is normal on direct and retroflexion views. - No specimens collected. Recommendation: - Discharge patient to home. - Resume previous diet. - Continue present medications. - Repeat colonoscopy in 10 years for screening purposes. Procedure Code(s): --- Professional --- 38285, Colonoscopy, flexible; diagnostic, including collection of specimen(s) by brushing or washing, when performed (separate procedure) Diagnosis Code(s): --- Professional --- Z12.11, Encounter for screening for malignant neoplasm of colon CPT copyright 2022 [employer]. All rights reserved. The codes documented in this report are preliminary and upon postdoctoral research associate review may be revised to meet current compliance requirements. Irving Damon MD 09/12/2024 8:39:02 AM This report has been signed electronically. Number of Addenda: 0 Note Initiated On: 09/12/2024 8:18 AM
--- NOTE | 2024-09-12 08:46 | PCM.POST.ANE ---
Anesthesia: Postop Eval I Current Vital Signs Temperature: 98 F Pulse Rate: 74 Blood Pressure: 106/83 Respiratory Rate: 18 Pulse Ox: 90 Oxygen Delivery Method: Room Air Assessment Airway patent: Yes Spontaneous unlabored respirations: Yes Mental status: Asleep nausea: No Vomiting: No Anesthesia Complication: No Fluid Hydration Crystalloid volume administer (ml): 50 Total IV fluid infused: 50 Progress Note Anesthesia document: Postop Eval 1 completed: Yes
--- NOTE | 2024-09-12 09:41 | PCM.POSTANE2 ---
Anesthesia Postop Eval I Sum Postop Eval Completion status Anesthesia document: Postop Eval 1 completed: Yes Anesthesia Postop Eval I Summary Anesthesia Postop Eval I Summary: Anesthesia Postop Eval I: Assessment Summary Airway patent Yes 09/12/24 08:47 [email or web address] Spontaneous unlabored Yes 09/12/24 08:47 [email or web address] respirations Mental status Asleep 09/12/24 08:47 [email or web address] nausea No 09/12/24 08:47 [email or web address] Vomiting No 09/12/24 08:47 [email or web address] Anesthesia Postop Eval I: Fluid Summary Crystalloid volume administer 50 09/12/24 08:47 [email or web address] (ml) Colloids volume administered ( ml) Blood Product volume administered (ml) Total IV fluid infused 50 09/12/24 08:47 [email or web address] Anesthesia Postop Eval I: Summary Notes Anesthesia Complication No 09/12/24 08:47 [email or web address] Anesthesia Complication Comment: Post-operative progress note Anesthesia: Postop Eval II Evaluation Mental status: Awake and Calm Pain Level: 0 nausea: No Vomiting: No Complications Anesthesia Complication: No
== END 2024-09-12 09:48 | disposition home or self-care (01) ==
LOC: EN 07:16 → AC 07:19
PROVIDERS: PCP Family Medicine; Referring Provider Family Medicine; Visit Provider Surgery
PROC: 0DJD8ZZ Inspection of Lower Intestinal Tract, Via Natural or Artificial Opening Endoscopic (ICD-10-PCS; CPT 45378; principal; 2024-09-12 08:25)
DX: Z12.11 Encounter for screening for malignant neoplasm of colon (principal); I25.10 Atherosclerotic heart disease of native coronary artery without angina pectoris; I10 Essential (primary) hypertension; Z86.16 Personal history of COVID-19; Z79.899 Other long term (current) drug therapy
CPT/HCPCS: 45378; A4216; J2405

== ENCOUNTER → 2025-06-06 | Outpatient (CLI) | payer OTHER, SELFPAY ==
--- NOTE | 2025-06-06 13:49 | CT_ITS ---
PROCEDURE: CTA CHEST W/WO CONTRAST 06/06/2025 REASON FOR EXAM: EVALUATE AORTIC ROOT SIZE TECHNIQUE: CTA CHEST W/WO CONTRAST Multiplanar Sagittal and Coronal images were obtained. CONTRAST: VOLUME: mL One or more dose reduction techniques were used (e.g., Automated exposure control, adjustment of the mA and/or kV according to patient size, use of iterative reconstruction technique). RADIATION DOSE SUMMARY: CTDlvol: mGy DLP: mGycm COMPARISON: 03-11-2023 # of known CTs in the past 12 months: # of known Cardiac Nuclear Medicine Studies in the past 12 months: FINDINGS: Suboptimal examination quality due to cardiac and respiratory motion artifact. Cardiac pulsation artifact hindering proper assessment of the aorta root diameters. Thoracic Aorta: Measurements (cm): Sinuses of Valsalva: 2.9 cm Sinotubular junction: 4 cm Mid ascendin.5 cm Mid aortic arch: 3 cm Proximal descendin.2 cm Mid descendin.5 cm Aorta at diaphragm: 2.3 cm Aorta at celiac axis: 2.2 cm Stable dilated ascending aorta reaching 4.5 cm in diameter. Patent average caliber aortic arch and descending thoracic aorta. No obvious aortic intraluminal hypodense thrombi, dissecting intimal flaps or significant aneurysmal dilatation. No evidence of any filling defect in the main pulmonary trunk, bilateral main pulmonary arteries. No obvious cardiac abnormalities. No pathologically enlarged lymph nodes. No obvious pulmonary masses, consolidations or cavitations. No pleural or pericardial sac collections. Small hiatus hernia. Scanned osseous structures show no osseous destruction. Scanned upper abdominal cuts show left renal stone. CT/CTA Chest W/WO Contrast IMPRESSION: Cardiac pulsation artifact hindering proper assessment of the aorta root accura te diameters. Stable dilated ascending aorta reaching 4.5 cm in diameter. Patent thoracic aorta. No obvious aortic intraluminal hypodense thrombi, dissec ting intimal flaps or significant aneurysmal dilatation. Reading [facility]
== END | disposition home or self-care (01) ==
LOC: CT 13:48
PROVIDERS: PCP Family Medicine; Referring Provider Nurse Practitioner Family; Visit Provider Nurse Practitioner Family
DX: I77.810 Thoracic aortic ectasia (principal); I42.8 Other cardiomyopathies; Q23.1 Congenital insufficiency of aortic valve
CPT/HCPCS: 71275; Q9967

== ENCOUNTER → 2025-06-11 | Outpatient (CLI) | payer OTHER, SELFPAY ==
--- NOTE | 2025-06-11 13:46 | ECHOD_ITS ---
Reason For Study Reason For Study: BICUSPID AV Procedure This was a 2D Doppler, Color Flow transthoracic echocardiogram. Exam performed in department. Left Ventricle Normal LV size. Left ventricular systolic function is normal. The left ventricular ejection fraction is 60 %. Stage 1 diastolic dysfunction. No regional wall motion abnormalities noted. Right Ventricle Normal RV size. Normal systolic function. Atria Normal left atrium. Normal right atrium. Mitral Valve Normal mitral valve. Tricuspid Valve Normal tricuspid valve. Aortic Valve Bicuspid aortic valve. Peak aortic valve gradient 18 mmHg. Mean aortic valve gradient 10 mmHg. Mild aortic stenosis. Great Vessels Moderately dilated aortic root. The pulmonary artery is normal size. Inferior vena cava collapse with respiration. Pericardium/Pleural No pericardial effusion. MMode/2D Measurements & Calculations LVIDd: 4.9 cm IVSd: 1.2 cm LVOT diam: 2.0 cm LVIDs: 2.9 cm LVPWd: 1.1 cm LVOT area: 3.0 cm2 RVDd: 3.1 cm FS: 39.5 % Ao root diam: 5.0 cm LAV(MOD-bp): 39.6 ml LVAd ap4: 34.2 cm2 LAV(MOD-bp) Indexed: 17.3 ml/m2 LVLd ap4: 9.3 cm LAV(MOD-sp2): 34.1 ml EDV(MOD-sp4): 100.5 ml LAV(MOD-sp4): 41.0 ml EDV(sp4-el): 105.9 ml LVAs ap4: 17.3 cm2 LVLs ap4: 7.3 cm ESV(MOD-sp4): 35.3 ml ESV(sp4-el): 34.8 ml EF(MOD-sp4): 64.9 % EF(sp4-el): 67.2 % SV(MOD-sp4): 65.3 ml SV(sp4-el): 71.1 ml LA A4 area: 15.8 cm2 SI(MOD-sp4): 28.6 ml/m2 LA dimension(2D): 3.6 cm RA A4 area: 8.8 cm2 Time Measurements MV dec time: 0.20 sec Doppler Measurements & Calculations MV E max rudy: 86.1 cm/sec Lat Peak E' Rudy: 13.7 cm/sec Med Peak E' Rudy: 10.5 cm/sec MV A max rudy: 88.1 cm/sec E/E' lat: 6.3 E/E' med: 8.2 MV E/A: 0.98 MV V2 max: 101.9 cm/sec Ao V2 max: 214.0 cm/sec MV max P.2 mmHg MV dec slope: 435.6 cm/sec2 Ao max P.3 mmHg MV V2 mean: 61.4 cm/sec Ao V2 mean: 150.5 cm/sec MV mean P.8 mmHg Ao mean P.4 mmHg MV V2 VTI: 33.7 cm Ao V2 VTI: 45.9 cm AV (velocity ratio): 0.41 MVA(VTI): 1.7 cm2 GINA(I,D): 1.2 cm2 GINA(V,D): 1.4 cm2 LV V1 max: 101.4 cm/sec SV(LVOT): 56.3 ml PA V2 max: 110.0 cm/sec LV V1 max P.1 mmHg PA V2 mean: 77.6 cm/sec LV V1 mean P.5 mmHg LV V1 mean: 74.4 cm/sec LV V1 VTI: 18.8 cm ECHO/Echo Complete Interpretation Summary Normal LV size. Left ventricular systolic function is normal. The left ventricular ejection fraction is 60 %. Stage 1 diastolic dysfunction. Moderately dilated aortic root. Mean aortic valve gradient 10 mmHg. Mild aortic stenosis. Ordering Physician: Rios Lopez Referring Physician: Rios Lopez Performed By: Shirley Bermeo RCS
== END | disposition home or self-care (01) ==
LOC: CVS 13:45
PROVIDERS: PCP Family Medicine; Referring Provider Nurse Practitioner Family; Visit Provider Nurse Practitioner Family
DX: I77.810 Thoracic aortic ectasia (principal); I42.8 Other cardiomyopathies; Q23.1 Congenital insufficiency of aortic valve
CPT/HCPCS: 93306